=== PATIENT | female | born 1990 | race African-American/Black ===

== ENCOUNTER 2017-01-12 06:36 | Emergency (ER) | payer MEDICAID ==
[~2017-01-12] VITALS: Ht 157.5 cm; Wt 68.0 kg
[2017-01-12 06:57] VITALS: BP 114/74
== END 2017-01-12 08:18 | disposition home or self-care (01) ==
LOC: ER 07:51
DX: H10.13 Acute atopic conjunctivitis, bilateral (principal); J45.909 Unspecified asthma, uncomplicated; F12.10 Cannabis abuse, uncomplicated; Z88.1 Allergy status to other antibiotic agents; Z87.891 Personal history of nicotine dependence
CPT/HCPCS: 99283; Z7610

== ENCOUNTER 2017-07-11 20:48 | Emergency (ER) | payer MEDICAID ==
[~2017-07-11] VITALS: Ht 154.9 cm; Wt 66.0 kg
[2017-07-11 21:23] VITALS: BP 111/68
== END 2017-07-12 01:15 | disposition left against medical advice (07) ==
LOC: ER 23:05
DX: Z53.21 Procedure and treatment not carried out due to patient leaving prior to being seen by health care provider (principal)